=== PATIENT | female | born 1945 | race Caucasian/White ===

== ENCOUNTER → 2017-03-17 | Outpatient (CLI) | payer MEDICARE, BC ==
[~2017-03-17] MED LIST: ACETAMINOPHEN650 M2 PO; ASPIR-LOW81 MG PO; BUMETANIDE2 MG PO; COREG25 MG PO; IMDUR60 MG PO; LEVOTHYROXINE50 MCG PO; LIPITOR80 MG PO; NAMENDA XR28 MG PO; NIACIN500 M1; NITROSTAT0.4 MG SL; NORCO 5-325 MG1 TAB PO; NORVASC10 MG PO; ONCE DAILY1 EACH PO; OXYGEN INH; PROTONIX40 MG PO; VENTOLIN HFA8 GM INH
== END | disposition disaster alternative care site (69) ==
LOC: GAMB 11:49
DX: R53.1 Weakness (principal); R11.0 Nausea; Z79.82 Long term (current) use of aspirin; Z79.891 Long term (current) use of opiate analgesic; Z79.899 Other long term (current) drug therapy; Z88.5 Allergy status to narcotic agent
CPT/HCPCS: A0425; A0427; J2405